=== PATIENT | female | born 1985 | race Asian ===

== ENCOUNTER 2017-01-01 11:14 | Inpatient (IN) | payer MEDICAID ==
[~2017-01-01] VITALS: Ht 165.1 cm; Wt 68.5 kg
[2017-01-01] MEDS ORDERED: PRENATAL VITAMI1 TA2 PO (12:01)
[2017-01-01] MEDS ORDERED: OXYTOCIN 10 UNITS/ML VIAL IM ONE (12:05)
[2017-01-01] MEDS ORDERED: PROMETHAZINE 25 MG/ML VIAL IM PRN (12:05)
[2017-01-01] MEDS ORDERED: OXYTOCIN 20 UNITS/LR PREMIX 1,000 ML IV SCH (12:05)
[2017-01-01] MEDS ORDERED: NALBUPHINE 10 MG/ML AMP IVP PRN (12:05)
[2017-01-01] MEDS ORDERED: MISOPROSTOL 25 MCG TAB VG ONE (12:05)
[2017-01-01] MEDS ORDERED: METHYLERGONOVINE 0.2 MG/ML AMP IM ONE (12:05)
[2017-01-01] MEDS ORDERED: LACTATED RINGERS 1,000 ML IV SCH (12:05)
[2017-01-01] MEDS ORDERED: MISOPROSTOL 25 MCG TAB ONE (13:38)
--- NOTE | 2017-01-01 14:40 | NUR ---
PATIENT HAS BEEN SCREENED AND CATEGORIZED LOW NUTRITION RISK. PATIENT WILL BE SEEN WITHIN 7 DAYS OF ADMISSION. 01/08/[address]
[2017-01-01] MEDS ORDERED: OXYTOCIN 10 UNITS/ML VIAL ONE (17:11)
[2017-01-01] MEDS ORDERED: NALBUPHINE HYDROCHLORIDE 10 MG/ML VIAL ONE (17:11)
[2017-01-01] MEDS ORDERED: PROMETHAZINE 25 MG/ML VIAL ONE (17:11)
[2017-01-01] MEDS ORDERED: OXYTOCIN 20 UNITS/LR PREMIX 1,000 ML IV ONE (17:12)
[2017-01-01] MEDS ORDERED: LABETALOL 100 MG TAB ONE (17:12)
[2017-01-01] MEDS ORDERED: METHYLERGONOVINE 0.2 MG/ML AMP IM PRN (18:40)
[2017-01-01] MEDS ORDERED: IBUPROFEN 800 MG TAB PO PRN (18:40)
[2017-01-01] MEDS ORDERED: MEASLES, MUMPS, AND RUBELLA 1 VIAL SQVAC PRN (18:40)
[2017-01-01] MEDS ORDERED: TEMAZEPAM 15 MG CAP PO PRN (18:40)
[2017-01-01] MEDS ORDERED: oxyCODONE/APAP 5/325 MG 1 TAB TAB PO PRN (18:40)
[2017-01-01] MEDS ORDERED: HYDROcodone/APAP 5/325 MG 1 TAB TAB PO PRN (18:40)
[2017-01-01] MEDS ORDERED: DOCUSATE SOD/SENNA 50/8.6 MG 1 TAB PO SCH (21:00)
[2017-01-01] MEDS: LABETALOL 100 MG TAB PO SCH (22:05)
[2017-01-01] MEDS ORDERED: BENZOCAINE/MENTHOL 20%-0.5% 60 GM CAN TP PRN (23:50)
[2017-01-02] MEDS ORDERED: SODIUM PHOSPHATE 118 ML ENEM RC PRN (12:35)
[2017-01-02] MEDS: LABETALOL 100 MG TAB PO SCH ×2 (13:48→20:52)
[2017-01-03] MEDS: LABETALOL 100 MG TAB PO SCH (11:09)
== END 2017-01-03 11:40 | disposition home or self-care (01) | DRG 560 ==
LOC: MLD 11:14 → MFCC 21:00 → EDSTATUS 01-10 11:06
PROVIDERS: ADMIT Obstetrics & Gynecology; ATTEND Obstetrics & Gynecology
PROC: 10E0XZZ Delivery of Products of Conception, External Approach (ICD-10-PCS; principal; 2017-01-01)
PROC: 0HQ9XZZ Repair Perineum Skin, External Approach (ICD-10-PCS; 2017-01-01)
PROC: 3E0P7GC Introduction of Other Therapeutic Substance into Female Reproductive, Via Natural or Artificial Opening (ICD-10-PCS; 2017-01-01)
DX: O75.89 Other specified complications of labor and delivery (principal); R03.0 Elevated blood-pressure reading, without diagnosis of hypertension; Z37.0 Single live birth; O70.0 First degree perineal laceration during delivery; Z3A.39 39 weeks gestation of pregnancy; Z28.21 Immunization not carried out because of patient refusal